=== PATIENT | male | born 1945 | race Caucasian/White ===

== ENCOUNTER → 2017-10-31 | Outpatient (CLI) | payer MEDICARE, OTHER | END | disposition home or self-care (01) | LOC: KCIC MRI 09:20 | DX: S56.512A Strain of other extensor muscle, fascia and tendon at forearm level, left arm, initial encounter (principal); S56.212A Strain of other flexor muscle, fascia and tendon at forearm level, left arm, initial encounter; M77.8 Other enthesopathies, not elsewhere classified; R60.0 Localized edema; X58.XXXA Exposure to other specified factors, initial encounter; Y93.89 Activity, other specified; Y92.89 Other specified places as the place of occurrence of the external cause; Y99.8 Other external cause status | CPT/HCPCS: 73221 ==

== ENCOUNTER 2018-02-28 11:13 | Inpatient (IN) | payer MEDICARE, OTHER ==
[2018-02-28] MEDS: ONDANSETRON PF 4 MG/2 ML VIAL. IV (11:39)
[2018-02-28] MEDS: fentaNYL PF VIAL 100 MCG/2 ML VIAL IV (11:39)
[2018-02-28] MEDS: IV NORMAL SALINE 1000ML BAG 1,000 ML IV ×2 (11:39→22:02)
[2018-02-28 11:42] LABS: ADD MAN DIFF? NO
[2018-02-28 11:46] LABS: BASO % 1 % (0-3); EOS % 0 % (0-3); HEMATOCRIT 43.9 % (39.0-53.0); HEMOGLOBIN 14.9 g/dL (13.0-17.5); LYMPH # 0.7 x10^3/uL (1.0-4.8); LYMPH % 11 % (24-48); MEAN CORPUSCULAR HEMOGLOBIN 32 pg (25-35); MEAN CORPUSCULAR HGB CONC 34 g/dL (31-37); MEAN CORPUSCULAR VOLUME 95 fL (79-100); MONO # 0.5 x10^3/uL (0.0-1.1); MONO % 8 % (0-9); NEUT % 80 % (31-73); PLATELET COUNT 102 x10^3/uL (140-400); RED CELL DISTRIBUTION WIDTH 13.5 % (11.5-14.5); WHITE BLOOD COUNT 6.3 x10^3/uL (4.0-11.0)
[2018-02-28 12:04] LABS: ISTAT BE VENOUS -3 mmol/L (0-3); ISTAT HCO3 VEN 20 mmol/L (24-28); ISTAT PCO2 VEN 24 mmHg (41-51); ISTAT PH VEN 7.52 (7.32-7.42); ISTAT PO2 VEN 30 mmHg (20-40); ISTAT SAT O2 VEN 68 %; ISTAT TCO2 VEN 21 mmol/L (21-32); TOSPEC VEN
[2018-02-28 12:08] LABS: LACTIC ACID 3.6 mmol/L (0.4-2.0)
[2018-02-28 12:10] LABS: ANION GAP 15 (6-14); BLOOD UREA NITROGEN 27 mg/dL (8-26); BUN/CREATININE RATIO 21 (6-20); CALCIUM 8.8 mg/dL (8.5-10.1); CARBON DIOXIDE 21 mmol/L (21-32); CHLORIDE 105 mmol/L (98-107); CREATININE 1.3 mg/dL (0.7-1.3); GFR 54.3; GLUCOSE 185 mg/dL (70-99); POTASSIUM 3.5 mmol/L (3.5-5.1); SODIUM 141 mmol/L (136-145)
[2018-02-28 12:17] LABS: ALBUMIN 3.7 g/dL (3.4-5.0); ALBUMIN/GLOBULIN RATIO 1.3 (1.0-1.7); ALK PHOS 71 U/L (46-116); ALT (SGPT) 27 U/L (16-63); AST (SGOT) 23 U/L (15-37); C-REACTIVE PROTEIN 1.8 mg/L (0-3.3); LIPASE 57 U/L (73-393); TOTAL BILIRUBIN 1.2 mg/dL (0.2-1.0); TOTAL PROTEIN 6.6 g/dL (6.4-8.2)
[2018-02-28 13:28] LABS: BILIRUBIN,URINE NEGATIVE (NEG); CLARITY,URINE CLOUDY; COLOR,URINE YELLOW; GLUCOSE,URINE 250 mg/dL (NEG); NITRITE,URINE NEGATIVE (NEG); PH,URINE 7.5; PROTEIN,URINE NEGATIVE (NEG-TRACE)
[2018-02-28 13:33] LABS: BACTERIA,URINE 0 /HPF (0-FEW); RBC,URINE 20-40 /HPF (0-2); SQUAMOUS EPITHELIAL CELL,UR OCC /LPF; WBC,URINE OCC /HPF (0-4)
[2018-02-28] MEDS ORDERED: ONDANSETRON PF 4 MG/2 ML VIAL. IV (14:45)
[2018-02-28] MEDS ORDERED: DEXTROSE 50% 25 GM / 50ML DISP.SYRIN. IV (16:45)
[2018-02-28] MEDS: INSULIN LISPRO 300 UNITS/3 ML INSULN.PEN. SQ ×3 (17:00→22:12)
[2018-02-28] MEDS: IV DEXTROSE 5%-LACT RINGERS 1,000 ML IV (17:09)
[2018-02-28 17:39] LABS: POC GLUCOSE 192 mg/dL (70-99)
[2018-02-28 18:27] LABS: POC GLUCOSE 249 mg/dL (70-99)
[2018-02-28 20:32] LABS: LACTIC ACID 1.6 mmol/L (0.4-2.0)
[2018-02-28 22:52] LABS: POC GLUCOSE 329 mg/dL (70-99)
[2018-03-01 00:08] LABS: POC GLUCOSE 235 mg/dL (70-99)
[2018-03-01] MEDS: INSULIN LISPRO 300 UNITS/3 ML INSULN.PEN. SQ ×6 (00:18→21:56)
[2018-03-01 05:15] LABS: POC GLUCOSE 320 mg/dL (70-99)
[2018-03-01 08:24] LABS: POC GLUCOSE 237 mg/dL (70-99)
[2018-03-01] MEDS ORDERED: LIDOCAINE 2% JELLY 6ML IN APPLICATOR. (10:18)
[2018-03-01] MEDS: IV NORMAL SALINE 1000ML BAG 1,000 ML IV ×2 (10:31→17:09)
[2018-03-01] MEDS: MORPHINE SULFATE 4 MG/ML DISP.SYRIN. IV (10:31)
[2018-03-01] MEDS ORDERED: PROPOFOL 20 ML IV (11:15)
[2018-03-01] MEDS ORDERED: fentaNYL PF VIAL 100 MCG/2 ML VIAL ×2 (11:15→14:21)
[2018-03-01] MEDS ORDERED: MIDAZOLAM HCL/PF 2 MG/2 ML VIAL. (11:15)
[2018-03-01 11:40] LABS: POC GLUCOSE 224 mg/dL (70-99)
[2018-03-01] MEDS: INSULIN ASPART 100 UNIT/ML 10ML VIAL. SQ (11:57)
[2018-03-01] MEDS ORDERED: SCOPOLAMINE 1.5MG PATCH. TD (12:24)
[2018-03-01] MEDS ORDERED: ONDANSETRON PF 4 MG/2 ML VIAL. (12:28)
[2018-03-01] MEDS ORDERED: DEXAMETHASONE SOD PHOS 20 MG/5 ML VIAL. (12:28)
[2018-03-01] MEDS: IOHEXOL 300 MG/ML 100ML VIAL. (12:59)
[2018-03-01] MEDS: fentaNYL PF VIAL 100 MCG/2 ML VIAL IV ×2 (14:47→14:57)
[2018-03-01 14:49] LABS: POC GLUCOSE 198 mg/dL (70-99)
[2018-03-01 16:56] LABS: POC GLUCOSE 188 mg/dL (70-99)
[2018-03-01] MEDS: IBUPROFEN 600 MG TABLET. PO (17:07)
[2018-03-01] MEDS: OXYBUTYNIN CHLORIDE 5 MG TABLET PO ×2 (17:07→20:44)
[2018-03-01] MEDS: ATORVASTATIN CALCIUM 40 MG TABLET. PO (20:43)
[2018-03-01 21:30] LABS: POC GLUCOSE 298 mg/dL (70-99)
[2018-03-02 00:05] LABS: POC GLUCOSE 234 mg/dL (70-99)
[2018-03-02] MEDS: IV NORMAL SALINE 1000ML BAG 1,000 ML IV (05:25)
[2018-03-02] MEDS: IBUPROFEN 600 MG TABLET. PO (06:23)
[2018-03-02] MEDS: INSULIN LISPRO 300 UNITS/3 ML INSULN.PEN. SQ ×2 (08:12→12:00)
[2018-03-02 08:35] LABS: POC GLUCOSE 306 mg/dL (70-99)
[2018-03-02] MEDS: OXYBUTYNIN CHLORIDE 5 MG TABLET PO (08:40)
[2018-03-02] MEDS: OMEGA-3 FATTY ACIDS/FISH OIL 1,000 MG CAPSULE. PO (08:40)
[2018-03-02] MEDS: CHOLECALCIFEROL (VITAMIN D3) 5,000 UNIT CAPSULE PO (08:40)
[2018-03-02] MEDS: CALCIUM CARBONATE 500 MG TABLET PO (08:40)
[2018-03-02] MEDS: TAMSULOSIN 0.4 MG CAP.ER.24H. PO (08:41)
[2018-03-02] MEDS: FINASTERIDE 5 MG TABLET. PO (08:41)
[2018-03-02] MEDS: LOSARTAN POTASSIUM 50 MG TABLET. PO (08:42)
[2018-03-02 10:24] LABS: POC GLUCOSE 312 mg/dL (70-99)
[2018-03-02] MEDS ORDERED: SENNOSIDES 8.6 MG TABLET PO (10:45)
[2018-03-02] MEDS: SENNOSIDES 8.6 MG TABLET PO (10:59)
[2018-03-02] MEDS: POLYETHYLENE GLYCOL 3350 17 GM PACKET. PO (13:59)
== END 2018-03-02 14:50 | disposition home or self-care (01) | DRG 693 ==
LOC: ER 11:13 → 5 NORTH 14:41
PROC: 0T768DZ Dilation of Right Ureter with Intraluminal Device, Via Natural or Artificial Opening Endoscopic (ICD-10-PCS; principal; 2018-03-01 12:00)
PROC: BT1D1ZZ Fluoroscopy of Right Kidney, Ureter and Bladder using Low Osmolar Contrast (ICD-10-PCS; 2018-03-01 12:00)
PROC: 0TF68ZZ Fragmentation in Right Ureter, Via Natural or Artificial Opening Endoscopic (ICD-10-PCS; 2018-03-01 12:00)
DX: N13.2 Hydronephrosis with renal and ureteral calculous obstruction (principal); G93.41 Metabolic encephalopathy; I48.91 Unspecified atrial fibrillation; E11.9 Type 2 diabetes mellitus without complications; M54.30 Sciatica, unspecified side; Z79.4 Long term (current) use of insulin; Z87.442 Personal history of urinary calculi
CPT/HCPCS: 36415; 74176; 74420; 80053; 81001; 82803; 82962; 83605; 83690; 85025; 86140; 96361; 96374; 96375; 99285; 99285-25; C1769; C2617; J0690; J1100; J1815; J2060; J2250; J2270; J2405; J2704; J3010; J7030; J7120; Q9967